=== PATIENT | male | born 1980 | race Caucasian/White ===

== ENCOUNTER 2017-08-08 11:40 | Emergency (ER) | payer OTHER ==
[~2017-08-08] VITALS: Ht 157.5 cm; Wt 71.0 kg
[2017-08-08 11:44] VITALS: Ht 157.5 cm; Wt 71.0 kg
[2017-08-08] MEDS ORDERED: SOD CHLORIDE 0.9% 1,000 ML IV STA (13:09)
[2017-08-08 13:37] LABS: BASOPHILS % 0.5 % (0.0-2.0); EOSINOPHILS # 0.1 10^3/ul (0.0-0.5); EOSINOPHILS % 1.6 % (0.0-7.0); HEMATOCRIT 42.3 % (42.0-52.0); HEMOGLOBIN 14.4 g/dl (14.0-18.0); LYMPHOCYTES # 1.7 10^3/ul (0.8-2.9); LYMPHOCYTES % 30.7 % (15.0-51.0); MEAN CORPUSCULAR HEMOGLOBIN 28.4 pg (29.0-33.0); MEAN CORPUSCULAR VOLUME 83.4 fl (82.0-101.0); MEAN PLATELET VOLUME 8.5 fl (7.4-10.4); MONOCYTE # 0.6 10^3/ul (0.3-0.9); MONOCYTES % 10.6 % (0.0-11.0); NEUTROPHIL # 3.1 10^3/ul (1.6-7.5); NEUTROPHILS % 56.2 % (39.0-77.0); PLATELET COUNT 293 10^3/UL (140-415); RED BLOOD COUNT 5.07 10^6/ul (4.70-6.10); WHITE BLOOD COUNT 5.5 10^3/ul (4.8-10.8)
[2017-08-08 13:40] LABS: ADD UMIC NO; UR ASCORBIC ACID NEGATIVE (NEGATIVE); UR BILIRUBIN (Dip) NEGATIVE (NEGATIVE); UR BLOOD (Dip) NEGATIVE (NEGATIVE); UR CLARITY CLEAR (CLEAR); UR COLOR STRAW (YELLOW); UR GLUCOSE (Dip) NEGATIVE (NEGATIVE); UR KETONES (Dip) NEGATIVE (NEGATIVE); UR LEUKOCYTE ESTERASE (Dip) NEGATIVE Leu/ul (NEGATIVE); UR NITRITE (Dip) NEGATIVE (NEGATIVE); UR SPECIFIC GRAVITY (Dip) 1.004 (1.003-1.030); UR TOTAL PROTEIN (Dip) NEGATIVE (NEGATIVE); UR UROBILINOGEN (Dip) NEGATIVE (NEGATIVE)
[2017-08-08 14:18] LABS: INR 0.88; PROTIME 11.9 Sec (12.2-14.2); PT RATIO 0.9
[2017-08-08 14:19] LABS: PARTIAL THROMBOPLASTIN TIME 26.9 Sec (25.0-35.0)
[2017-08-08 14:22] LABS: ALBUMIN 4.9 g/dl (3.3-4.9); ALBUMIN/GLOBULIN RATIO 1.32; BILIRUBIN,INDIRECT 0.2 mg/dl (0-1.1); BILIRUBIN,TOTAL 0.2 mg/dl (0.2-1.3); CALCIUM 9.7 mg/dl (8.4-10.2); CREATININE 0.9 mg/dl (0.61-1.24); POTASSIUM 4.1 mmol/L (3.5-5.1); TOTAL PROTEIN 8.6 g/dl (6.1-8.1)
[2017-08-08] MEDS ORDERED: SOD CHLORIDE 0.9% 100 ML ONE (14:32)
[2017-08-08] MEDS ORDERED: IOHEXOL 300MG/ML 150 ML BTL ONE (14:32)
--- NOTE | 2017-08-08 15:13 | RADRPT ---
PROCEDURE: CT Abdomen and Pelvis with contrast. CLINICAL INDICATION: Abdominal pain TECHNIQUE: CT scan of the abdomen and pelvis with contrast was performed . The patient was scanne d following the uncomplicated intravenous administration of 100 cc of Omnipaque 300. Coronal and sa gittal reformatted images were obtained from the axial source images. Images were reviewed on a high -resolution PACS workstation. images. The calculated radiation dose measures 273.50 mGy centimeters. The CTDI measures 4.78 mGy. One or more of the following dose reduction techniques were used: - Automated exposure control. - Adjustment of the mA and/or kV according to patient size . - Use of iterative reconstruction technique. Images were reviewed on a high-resolution PACS workstation COMPARISON: None. FINDINGS: CT abdomen: The lung bases are clear. The heart size is normal, without pericardial thickening or effusion. Th e liver is normal in size and density without focal mass or intrahepatic biliary dilatation. There i s a sub-centimeter hyperdense of the right liver lobe likely representing a cyst. The spleen is norm al in size and homogeneous in density. The stomach is partially collapsed, but is grossly unremarka ble. The pancreas as visualized is normal. The gallbladder and biliary tree are unremarkable and t here is no evidence for biliary dilatation. The adrenal glands are symmetric and normal. The kidne ys are symmetrically unremarkable as well. No renal calculus or obstructive uropathy or mass lesion is seen. The aorta is of normal caliber. There is no retroperitoneal lymphadenopathy. The emi hepatis reg ion is clear. The bowel and mesentery, as visualized, are equally unremarkable. CT pelvis: The small bowel loops situated within the pelvis are unremarkable. The pelvic organs are normal. T he pelvic sidewalls and inguinal regions are clear. The sigmoid colon and rectum demonstrate mild b owel wall thickening and hyperenhancement, nonspecific but could represent mild colitis. The appendi x is normal in caliber.. A few scattered mesenteric lymph nodes are present. Mild, nonspecific bila teral hydrocele. The surrounding osseous structures are unremarkable. No osteolytic or osteoblastic lesion is detect ed. IMPRESSION: 1. Mildly thickened distal descending and sigmoid colon wall, nonspecific but may represent mild col itis from an inflammatory or infectious etiology. 2. Normal-caliber appendix. RPTAT: TT .Bradley Orozco MD, MD Date Time Electronically viewed and signed by .Bradley Orozco MD, MD on 08/08/2017 15:13 .d/
[2017-08-08] MEDS ORDERED: METR500T PO (15:19)
[2017-08-08] MEDS ORDERED: CIPR500T4 PO (15:19)
[2017-08-08 15:24] VITALS: BP 127/77; PULSE 72; RESP 19; TEMP 98.1
--- NOTE | 2017-08-10 14:32 | ERD ---
ER Documentation Chief Complaint Date/Time DATE: 08/10/17 TIME: 14:26 Chief Complaint Complains of blood in stool x 3 months HPI This patient is a 37-year-old male presenting to the emergency department with complaints of intermittent bloody stools for the past 2 months. He states that every bowel movement he has seen a small amount of blood in the toilet. His stools go from watery to solid and back to watery. He did his primary care physician who wanted to order CT abdominal scans, however the patient has not been able to have these completed yet. He does have an appointment with the GI specialist later today. Additionally he reports intermittent dizziness in the past week and states he also lost 8 pounds in the past week. Symptoms are worse with eating. He has decreased appetite. He denies fevers, chills, or other symptoms currently. ROS All systems reviewed and are negative except as per history of present illness. Medications Home Meds Active Scripts Metronidazole* (Flagyl*) 500 Mg Tablet, 500 MG PO BID for 7 Days, #14 TAB Prov:CHAO MONTANEZ PA-C 08/08/17 Ciprofloxacin Hcl* (Ciprofloxacin Hcl*) 500 Mg Tablet, 500 MG PO BID for 7 Days , #14 TAB Prov:CHAO MONTANEZ PA-C 08/08/17 Allergies Allergies: Coded Allergies: No Known Allergy (Unverified , 08/08/17) PMhx/Soc Medical and Surgical Hx: pt denies Medical Hx, pt denies Surgical Hx Hx Alcohol Use: No Hx Substance Use: No Hx Tobacco Use: No Smoking Status: Never smoker Physical Exam Vitals Vital Signs Date Time Temp Pulse Resp B/P Pulse Ox O2 Delivery O2 Flow Rate FiO2 08/08/17 15:24 98.1 72 19 127/77 100 Room Air 08/08/17 11:44 99.0 71 20 113/73 100 Physical Exam Const: Nontoxic, well-appearing male in no acute distress. Head: Atraumatic Eyes: Normal Conjunctiva ENT: Normal External Ears, Nose and Mouth. Neck: Full range of motion..~ No meningismus. Resp: Clear to auscultation bilaterally Cardio: Regular rate and rhythm, no murmurs Abd: Soft, mild generalized tenderness to palpation of the abdomen, however no rebound tenderness or guarding, no McBurney's point tenderness, no gross peritonitis, negative Abebe sign, non distended. Normal bowel sounds RECTAL: Verbal Consent Obtained Sphincter tone is normal. No external hemorrhoids seen. No evidence of anal fissure or internal hemorrhoids. Non- tender to digital rectal palpation. No masses palpated. Guaiac negative. Control is positive. Skin: No petechiae or rashes Back: No midline or flank tenderness Ext: No cyanosis, or edema Neur: Awake and alert Psych: Normal Mood and Affect Result Diagram: 08/08/17 1310 08/08/17 1310 Results 24 hrs Laboratory Tests Test 08/08/17 12:50 08/08/17 13:00 08/08/17 13:10 Stool Occult Blood POSITIVE Urine Color STRAW Urine Clarity CLEAR Urine pH 8.0 Urine Specific [place] 1.004 Urine Ketones NEGATIVEmg/dL Urine Nitrite NEGATIVEmg/dL Urine Bilirubin NEGATIVEmg/dL Urine Urobilinogen NEGATIVEmg/dL Urine Leukocyte Esterase NEGATIVELeu/ul Urine Hemoglobin NEGATIVEmg/dL Urine Glucose NEGATIVEmg/dL Urine Total Protein NEGATIVEmg/dl White Blood Count 5.510^3/ul Red Blood Count 5.0710^6/ul Hemoglobin 14.4g/dl Hematocrit 42.3% Mean Corpuscular Volume 83.4fl Mean Corpuscular Hemoglobin 28.4pg Mean Corpuscular Hemoglobin Concent 34.0g/dl Red Cell Distribution Width 12.0% Platelet Count 68114^3/UL Mean Platelet Volume 8.5fl Neutrophils % 56.2% Lymphocytes % 30.7% Monocytes % 10.6% Eosinophils % 1.6% Basophils % 0.5% Nucleated Red Blood Cells % 0.0/100WBC Neutrophils # 3.110^3/ul Lymphocytes # 1.710^3/ul Monocytes # 0.610^3/ul Eosinophils # 0.110^3/ul Basophils # 0.010^3/ul Nucleated Red Blood Cells # 0.010^3/ul Prothrombin Time 11.9Sec Prothrombin Time Ratio 0.9 INR International Normalized Ratio 0.88 Activated Partial Thromboplast Time 26.9Sec Sodium Level 143mmol/L Potassium Level 4.1mmol/L Chloride Level 102mmol/L Carbon Dioxide Level 29mmol/L Anion Gap 16 Blood Urea Nitrogen 11mg/dl Creatinine 0.90mg/dl Glucose Level 88mg/dl Calcium Level 9.7mg/dl Total Bilirubin 0.2mg/dl Direct Bilirubin 0.00mg/dl Indirect Bilirubin 0.2mg/dl Aspartate Amino Transf (AST/SGOT) 28IU/L Alanine Aminotransferase (ALT/SGPT) 26IU/L Alkaline Phosphatase 94IU/L Total Protein 8.6g/dl Albumin 4.9g/dl Globulin 3.70g/dl Albumin/Globulin Ratio 1.32 Lipase 57U/L Current Medications Medications (Trade) Dose Ordered Sig/Aden Route PRN Reason Start Time Stop Time Status Last Admin Dose Admin Sodium Chloride (NS) 1,000 ml @ 1,000 mls/hr Q1H STAT IV 08/08/17 13:09 08/08/17 14:08 DC 08/08/17 13:30 IV Flush 10 ml 10 ml STK-MED ONCE .ROUTE 08/08/17 14:32 08/08/17 14:33 DC 08/08/17 14:55 Sodium Chloride (NS) 100 ml @ ud STK-MED ONCE .ROUTE 08/08/17 14:32 08/08/17 14:33 DC 08/08/17 14:54 Iohexol (Omnipaque 300mg/ ml) 150 ml STK-MED ONCE .ROUTE 08/08/17 14:32 08/08/17 14:33 DC 08/08/17 14:53 Procedures/MDM A 7-year-old male presenting to the emergency department with complaints of blood in his stool intermittently for the past 2 months. Physical examination is essentially benign. The patient was treated in the department with IV fluids but declined pain medication. CBC showed no signs of leukocytosis or anemia. Chem panel showed no significant abnormalities. Urinalysis showed no hematuria, proteinuria, or signs of infection. Stool occult blood test was positive. CT scan of the abdomen did show mildly thickened distal descending and sigmoid colon wall, nonspecific but may represent mild colitis from an inflammatory or infectious etiology. After workup in the department the patient 's diagnosis was colitis. He was prescribed Flagyl and ciprofloxacin for 7 days for possible infectious etiology. He was advised to go to his specialist appointment right after he is discharged from here. He is to follow-up with his primary care physician as well. He may return to the department immediately for any new or worsening symptoms. Low suspicion for life- threatening etiology at time of discharge. PROCEDURE: CT Abdomen and Pelvis with contrast. CLINICAL INDICATION: Abdominal pain TECHNIQUE: CT scan of the abdomen and pelvis with contrast was performed . The patient was scanned following the uncomplicated intravenous administration of 100 cc of Omnipaque 300. Coronal and sagittal reformatted images were obtained from the axial source images. Images were reviewed on a high- resolution PACS workstation. images. The calculated radiation dose measures 273.50 mGy centimeters. The CTDI measures 4.78 mGy. One or more of the following dose reduction techniques were used: - Automated exposure control. - Adjustment of the mA and/or kV according to patient size . - Use of iterative reconstruction technique. Images were reviewed on a high-resolution PACS workstation COMPARISON: None. FINDINGS: CT abdomen: The lung bases are clear. The heart size is normal, without pericardial thickening or effusion. The liver is normal in size and density without focal mass or intrahepatic biliary dilatation. There is a sub-centimeter hyperdense of the right liver lobe likely representing a cyst. The spleen is normal in size and homogeneous in density. The stomach is partially collapsed, but is grossly unremarkable. The pancreas as visualized is normal. The gallbladder and biliary tree are unremarkable and there is no evidence for biliary dilatation. The adrenal glands are symmetric and normal. The kidneys are symmetrically unremarkable as well. No renal calculus or obstructive uropathy or mass lesion is seen. The aorta is of normal caliber. There is no retroperitoneal lymphadenopathy. The emi hepatis region is clear. The bowel and mesentery, as visualized, are equally unremarkable. CT pelvis: The small bowel loops situated within the pelvis are unremarkable. The pelvic organs are normal. The pelvic sidewalls and inguinal regions are clear. The sigmoid colon and rectum demonstrate mild bowel wall thickening and hyperenhancement, nonspecific but could represent mild colitis. The appendix is normal in caliber.. A few scattered mesenteric lymph nodes are present. Mild, nonspecific bilateral hydrocele. The surrounding osseous structures are unremarkable. No osteolytic or osteoblastic lesion is detected. IMPRESSION: 1. Mildly thickened distal descending and sigmoid colon wall, nonspecific but may represent mild colitis from an inflammatory or infectious etiology. 2. Normal-caliber appendix. RPTAT: TT .Bradley Orozco MD, MD Date Time Electronically viewed and signed by .Bradley Orozco MD, MD on 08/08/2017 15:13 Departure Diagnosis: Primary Impression: Colitis Condition: Fair Patient Instructions: What Is Ulcerative Colitis? Referrals: COMMUNITY CLINICS YOU HAVE RECEIVED A MEDICAL SCREENING EXAM AND THE RESULTS INDICATE THAT YOU DO NOT HAVE A CONDITION THAT REQUIRES URGENT TREATMENT IN THE EMERGENCY DEPARTMENT. FURTHER EVALUATION AND TREATMENT OF YOUR CONDITION CAN WAIT UNTIL YOU ARE SEEN IN YOUR DOCTORS OFFICE WITHIN THE NEXT 1-2 DAYS. IT IS YOUR RESPONSIBILITY TO MAKE AN APPOINTMENT FOR FOLOW-UP CARE. IF YOU HAVE A PRIMARY DOCTOR --you should call your primary doctor and schedule an appointment IF YOU DO NOT HAVE A PRIMARY DOCTOR YOU CAN CALL OUR PHYSICIAN REFERRAL HOTLINE AT IF YOU CAN NOT AFFORD TO SEE A PHYSICIAN YOU CAN CHOSE FROM THE FOLLOWING [facility] [id number]. [facility] [address] [facility] [address] [facility] [address] [facility] [address] [facility]. [facility]. [address] [place] Additional Instructions: Follow up with your PCP within the next 1-3 days for a repeat evaluation. If you require a referral to a specialist, your Primary Care Provider may be able to provide this for you. In most patient cases, a referral is not required. If you have further questions regarding this matter, please ask your Primary Care Provider. Return the the emergency department immediately if symptoms worsen or change. If you have any questions regarding medications, ask your pharmacist or us before you leave. If any adverse reactions, occur while taking your medications, discontinue the treatment and return to the emergency department immediately. If any new or worsening symptoms, uncontrolled fevers, or other unexplained symptoms occur, return to the emergency department immediately. Take your medications as directed, and complete the entire course of treatment. CHAO MONTANEZ PA-C Aug 10, 2017 14:32
--- NOTE | 2017-08-10 16:49 | EN ---
Date/Time of Note Date/Time of Note DATE: 08/10/17 TIME: 16:48 ER Progress Note Patient was called back on 08-10-2017 for a recheck on status. The patient states he is improved slightly with his symptoms and he did go to see a GI specialist to prescribe him metronidazole 3 times daily for 2 weeks. He was advised he may return immediately for any new or worsening symptoms. CHAO MONTANEZ PA-C Aug 10, 2017 16:49
== END 2017-08-08 15:25 | disposition home or self-care (01) ==
LOC: FTE 11:40
DX: K52.9 Noninfective gastroenteritis and colitis, unspecified (principal)
CPT/HCPCS: 36415; 74177; 80053; 81003; 82270; 83690; 85025; 85610; 85730; 99285; J7030; Q9967